=== PATIENT | female | born 1980 | race African-American/Black ===

== ENCOUNTER 2017-08-05 09:26 | Emergency (ER) | payer SELFPAY ==
[~2017-08-05] VITALS: Ht 154.9 cm; Wt 90.0 kg
[~2017-08-05 09:26] MED LIST: ALBU0.086 NEB; ASPI81TA82 PO; LISI-360 PO; PLAV75TA PO; PRED20 PO; ZITH250T PO; ZOFR4TAB3 SL
[2017-08-05 09:29] VITALS: BP 138/71; PULSE 95; RESP 18; TEMP 98.5; O2SAT 100
--- NOTE | 2017-08-05 09:31 | PD ---
HPI Chief Complaint: seizure Time Seen by Provider: 09:30 Travel History International Travel<30 days: No Contact w/Intl Traveler<30days: No Traveled to known affect area: No History of Present Illness HPI 36-year-old female came to the emergency room brought by EMS for active seizure witnessed by her sister. Patient is from [place] and is visiting her sister. She takes Dilantin for his seizures. She started having seizure when her sister called 911. As per EMS she had an episode while she was on their stretcher. Blood sugar was 119. When patient arrived into the emergency department she was hyperventilating and having occasional myoclonic jerks that to me did not look like seizures. She was tachycardic in 100s with normal blood pressure. There were tears coming out of her eyes but the eyes were tightly shut. She was not following commands but seemed more voluntary. [facility] Past Medical History Narrative Medical List of her past medical, surgical, social and family history is reviewed from the nursing note. Asthma: Yes Cardiovascular Problems: Yes ([place] X1) Diminished Hearing: Yes (L EAR) Hypertension: Yes Respiratory: Yes (ASTHMA) Myocardial Infarction: Yes (2011) : 0 Para: 0 Past Surgical History Coronary Stent: Yes (X1) Social History Alcohol Use: No Tobacco Use: Yes (2 CIGS/DAY) Substance Use: No Allergies-Medications (Allergen,Severity, Reaction): Coded Allergies: Penicillins (Verified Allergy, Severe, Anaphylaxis, 08/05/17) clindamycin (Verified Allergy, Severe, 08/05/17) iodine (Verified Allergy, Intermediate, Rash, 08/05/17) latex (Verified Allergy, Intermediate, Hives, 08/05/17) Comments List of her allergies reviewed from the nursing note. Reported Meds & Prescriptions Reported Meds & Active Scripts Active Reported Prednisone 20 Mg Tab 40 Mg PO DAILY Take 40 mg (2 tablets) daily for 5 days Aspirin 81 (Aspirin) 81 Mg Tabdr 81 Mg PO DAILY Simvastatin 5 Mg Tab Unknown Dose PO DAILY Plavix (Clopidogrel Bisulfate) 75 Mg Tab 75 Mg PO DAILY Dilantin (Phenytoin Extended) 30 Mg Cap Unknown Dose PO TID Lisinopril 10 Mg Tab Unknown Dose PO DAILY Narrative Medication List of her home medications reviewed from the nursing note. Review of Systems Except as stated in HPI: all other systems reviewed are Neg Neurologic: Positive: Seizures Physical Exam Narrative GENERAL: Eyes closed, nonverbal, shaking SKIN: Focused skin assessment warm/dry. HEAD: Atraumatic. Normocephalic. EYES: Pupils equal and round. No scleral icterus. No injection or drainage. ENT: No nasal bleeding or discharge. Mucous membranes pink and moist. NECK: Trachea midline. No JVD. CARDIOVASCULAR: Regular rate and rhythm. No murmur appreciated. RESPIRATORY: No accessory muscle use. Clear to auscultation. Breath sounds equal bilaterally. GASTROINTESTINAL: Abdomen soft, non-tender, nondistended. Hepatic and splenic margins not palpable. MUSCULOSKELETAL: No obvious deformities. No clubbing. No cyanosis. No edema. NEUROLOGICAL: Eyes closed and nonverbal. No obvious cranial nerve deficits. Motor grossly within normal limits. Patient is having coarse jerking movements that do not look like seizure. PSYCHIATRIC: Appropriate mood and affect; insight and judgment normal. Data Data Last Documented VS Vital Signs Date Time Temp Pulse Resp B/P (MAP) Pulse Ox O2 Delivery O2 Flow Rate FiO2 08/05/17 13:40 08/05/17 12:32 65 19 100 Room Air 08/05/17 09:29 98.5 Orders Orders Complete Blood Count With Diff (08/05/17 09:31) Alcohol (Ethanol) (08/05/17 09:31) Phenytoin (Dilantin) (08/05/17 09:31) Drug Screen, Random Urine (08/05/17 09:31) Electrocardiogram (08/05/17 ) Blood Glucose (08/05/17 09:31) Ecg Monitoring (08/05/17 09:31) Iv Access Insert/Monitor (08/05/17 09:31) Oximetry (08/05/17 09:31) Comprehensive Metabolic Panel (08/05/17 09:31) Sodium Chloride 0.9% Flush (Ns Flush) (08/05/17 09:45) Ed Urine Pregnancytest Poc (08/05/17 09:31) Ct Brain W/O Iv Contrast(Rout) (08/05/17 ) Sodium Chlor 0.9% 1000 Ml Inj (Ns 1000 M (08/05/17 11:45) Ed Discharge Order (08/05/17 13:23) Labs Laboratory Tests Test 08/05/17 10:00 White Blood Count 11.0 TH/MM3 Red Blood Count 4.78 MIL/MM3 Hemoglobin 11.3 GM/DL Hematocrit 37.2 % Mean Corpuscular Volume 77.9 FL Mean Corpuscular Hemoglobin 23.6 PG Mean Corpuscular Hemoglobin Concent 30.3 % Red Cell Distribution Width 18.6 % Platelet Count 472 TH/MM3 Mean Platelet Volume 8.8 FL Neutrophils (%) (Auto) 55.9 % Lymphocytes (%) (Auto) 31.0 % Monocytes (%) (Auto) 10.3 % Eosinophils (%) (Auto) 2.0 % Basophils (%) (Auto) 0.8 % Neutrophils # (Auto) 6.1 TH/MM3 Lymphocytes # (Auto) 3.4 TH/MM3 Monocytes # (Auto) 1.1 TH/MM3 Eosinophils # (Auto) 0.2 TH/MM3 Basophils # (Auto) 0.1 TH/MM3 CBC Comment DIFF FINAL Differential Comment Blood Urea Nitrogen 9 MG/DL Creatinine 0.99 MG/DL Random Glucose 87 MG/DL Total Protein 7.8 GM/DL Albumin 3.2 GM/DL Calcium Level 8.3 MG/DL Alkaline Phosphatase 114 U/L Aspartate Amino Transf (AST/SGOT) 18 U/L Alanine Aminotransferase (ALT/SGPT) 30 U/L Total Bilirubin LESS THAN 0.1 MG/DL Sodium Level 141 MEQ/L Potassium Level 3.6 MEQ/L Chloride Level 111 MEQ/L Carbon Dioxide Level 11.9 MEQ/L Anion Gap 18 MEQ/L Estimat Glomerular Filtration Rate 78 ML/MIN Urine Opiates Screen NEG Urine Barbiturates Screen NEG Phenytoin (Dilantin) Level LESS THAN 0.4 MCG/ML Urine Amphetamines Screen NEG Urine Benzodiazepines Screen NEG Urine Cocaine Screen POS Urine Cannabinoids Screen POS Ethyl Alcohol Level LESS THAN 3 MG/DL MDM Medical Decision Making Medical Screen Exam Complete: Yes Emergency Medical Condition: Yes Medical Record Reviewed: Yes Interpretation(s) Twelve-lead EKG was reviewed by me. Normal sinus rhythm, normal axis, tachycardia, nonspecific ST-T wave changes. Rate of 118 bpm. Differential Diagnosis Polysubstance abuse, pseudoseizure, anxiety, conversion disorder Narrative Course 11:04 AM patient had one more event soon after she was brought in to the room. Once again these movements did not look like seizures. CBC is back which is within normal limits. Awaiting for the chemistry and Dilantin level as well as urine drug screen. 1:19 PM patient's test results are back. She has significant metabolic acidosis with bicarbonate of 12 and anion gap of 18. Alcohol level is 0 but her urine drug screen is positive for cocaine and marijuana. I ordered a CT scan of her brain which shows calcification in the basal ganglia but otherwise negative. The radiologist's dictated his concern for calcification and a younger patient like her period. I went and spoke with the patient and she is fully awake and answering questions appropriately at this point. She told me that she is not on Dilantin. She was diagnosed with seizures 2 months ago in [place]. Initially she told me that she has a prescription that needs to be filled at the pharmacy but later she told me that "they" will give her the prescription once she has had an EEG and an MRI. She also told me that she has been going through a lot of financial stress lately because her grandmother 2 weeks ago. Because of that she has been abusing cocaine. Last night she did $100 worth of cocaine and was up all night doing that. She denies any suicidal ideations. She is comfortable going home she said. I'll discharge her. She is calling her sister to come and pick her up. Procedures EKG Prior to Arrival: No Diagnosis Primary Impression: Pseudoseizure Additional Impressions: Cocaine abuse Metabolic acidosis Referrals: Primary Care Physician Additional Instructions: Please get capture MRI and EEG done from your neurologist as per the appointment. He should not be driving or operating heavy machinery until you have been cleared by your neurologist. In to the ER if the condition worsens or any other new concerns. You should not be abused cocaine since its extremely dangerous for health. Med/Other Pt SpecificInfo: No Change to Meds Disposition: 01 DISCHARGE HOME Condition: Stable Jon Moon MD Aug 05, 2017 09:31
[2017-08-05] MEDS ORDERED: SODIUM CHLORIDE 0.9% FLUSH 10 ML FLUSH IVF PRN (09:45)
[2017-08-05] MEDS ORDERED: ASPI1TAB57 PO (10:02)
[2017-08-05] MEDS ORDERED: LISI10TA3 PO (10:02)
[2017-08-05] MEDS ORDERED: DILA30CA PO (10:02)
[2017-08-05] MEDS ORDERED: PLAV75TA29 PO (10:02)
[2017-08-05] MEDS ORDERED: PRED20 PO (10:02)
[2017-08-05] MEDS ORDERED: SIMV5TAB3 PO (10:02)
[2017-08-05 10:35] LABS: AUTOMATED NEUTROPHIL # 6.1 TH/MM3 (1.8-7.7); BASOPHIL # 0.1 TH/MM3 (0-0.2); BASOPHIL % 0.8 % (0.0-2.0); EOSINOPHIL # 0.2 TH/MM3 (0-0.4); HEMATOCRIT 37.2 % (35.0-46.0); HEMO FLAGS DIFF FINAL; LYMPHOCYTE # 3.4 TH/MM3 (1.0-4.8); MEAN CELL VOLUME 77.9 FL (80.0-100.0); MEAN CORPUSCULAR HEMOGLOBIN 23.6 PG (27.0-34.0); MEAN CORPUSCULAR HGB CONC 30.3 % (32.0-36.0); MONO % 10.3 % (0.0-8.0); NEUT % 55.9 % (16.0-70.0); PLATELET COUNT 472 TH/MM3 (150-450); RED BLOOD COUNT 4.78 MIL/MM3 (4.00-5.30); RED CELL DISTRIBUTION WIDTH 18.6 % (11.6-17.2)
[2017-08-05 11:03] LABS: ALT (GPT) 30 U/L (10-53); ANION GAP 18 MEQ/L (5-15); AST (GOT) 18 U/L (15-37); BICARBONATE 11.9 MEQ/L (21.0-32.0); BLOOD UREA NITROGEN 9 MG/DL (7-18); CHLORIDE 111 MEQ/L (98-107); GLOMERULAR FILTRATION RATE 78 ML/MIN (>89); POTASSIUM 3.6 MEQ/L (3.5-5.1); SODIUM (NA) 141 MEQ/L (136-145)
[2017-08-05 11:05] LABS: ALKALINE PHOSPHATASE 114 U/L (45-117); TOTAL BILIRUBIN ADULT LESS THAN 0.1 MG/DL (0.2-1.0)
[2017-08-05 11:13] LABS: ALCOHOL LESS THAN 3 MG/DL (0-5)
[2017-08-05] MEDS ORDERED: SODIUM CHLOR 0.9% 1000 ML INJ 1,000 ML IV ONE (11:45)
[2017-08-05 12:32] VITALS: BP 126/80; PULSE 65; RESP 19; O2SAT 100
--- NOTE | 2017-08-05 12:45 | RADRPT ---
EXAM DATE/TIME: 08/05/2017 12:22 [facility] COMPARISON: No previous studies available for comparison. INDICATIONS : Seizure. RADIATION DOSE: 28.73 CTDIvol (mGy) MEDICAL HISTORY : Seizures. Cardiovascular disease Hypertension. SURGICAL HISTORY : None. ENCOUNTER: Initial ACUITY: 1 day PAIN SCALE: 0/10 LOCATION: cranial TECHNIQUE: Multiple contiguous axial images were obtained of the head. Using automated exposure control and adj ustment of the mA and/or kV according to patient size, radiation dose was kept as low as reasonably a chievable to obtain optimal diagnostic quality images. DICOM format image data is available electro nically for review and comparison. FINDINGS: CEREBRUM: Bilateral basal ganglia calcifications. The ventricles are normal for age. No evidence of midline sh ift, mass lesion, hemorrhage or acute infarction. No extra-axial fluid collections are seen. POSTERIOR FOSSA: The cerebellum and brainstem are intact. The 4th ventricle is midline. The cerebellopontine angle i s unremarkable. EXTRACRANIAL: The visualized portion of the orbits is intact. SKULL: The calvaria is intact. No evidence of skull fracture. CONCLUSION: 1. Bilateral basal ganglia calcifications. Although basal ganglia calcifications are seen commonly in older patients, it is generally considered pathological in patients < 40 years old. There is an exte nsive differential consideration including toxic etiologies such as carbon monoxide and lead poisonin g; infectious etiologies such as TORCH infection, AIDS or TONGUE LINING STITCHER tuberculosis; or metabolic etiologies p rimarily involving parathyroid disorders. 2. Otherwise, no acute intracranial abnormality. Pilo Johnson MD on August 05, 2017 at 12:38 Board Certified Radiologist. This report was verified electronically.
--- NOTE | 2017-08-06 08:56 | EKG ---
Date Performed: 08/05/2017 Time Performed: 09:37:32 PTAGE: 36 years EKG: SINUS TACHYCARDIA ABNORMAL RHYTHM ECG Compared to prior tracing no significant change PREVIOUS TRACING : 06/27/16 @ 0706 DOCTOR: Dexter Lane Interpretating Date/Time 08/06/2017 08:55:35
== END 2017-08-05 13:40 | disposition home or self-care (01) ==
LOC: NEPC 09:26
DX: F44.5 Conversion disorder with seizures or convulsions (principal); F14.10 Cocaine abuse, uncomplicated; E87.2 Acidosis; R94.31 Abnormal electrocardiogram [ECG] [EKG]; J45.909 Unspecified asthma, uncomplicated; I10 Essential (primary) hypertension; Z72.0 Tobacco use
CPT/HCPCS: 70450; 80053; 80185; 80307; 84703; 85025; 93005; 96360; 99285; J7030